=== PATIENT | female | born 1950 | race African-American/Black ===

== ENCOUNTER 2024-11-04 15:33 | Inpatient (IN) | payer MEDICARE, MEDICAID ==
[~2024-11-04] VITALS: Ht 172.7 cm; Wt 90.7 kg
[~2024-11-04 15:33] MED LIST: CARI250T; FESO4TAB; HYDR-1421; MONT4CHW74; [UNRECOGNIZED DRUG - CODE]; [UNRECOGNIZED DRUG - OTHER]
--- NOTE | 2024-11-04 15:52 | ED.PDOC ---
History of Present Illness HPI Comments This is a 74 years old female with past medical history of bronchial asthma, CHF, Alzheimer's disease, cardiac arrest, UTI, status post pacemaker presented to the ED via EMS with a chief complaint of dizziness , shivering and diaphoresis prior to this visit. Patient states that since last she started having abdominal pain and frequent diarrhea and went to [facility] and subsequently diagnosed with UTI and discharged home with oral antibiotic. Today morning the patient's suddenly felt diaphoresis and shakiness of the whole body with dizziness. Denies chest pain, shortness of breath, blurred vision, dysuria, hematuria or any blood in the stool. Time Seen by MD: 15:34 Primary Care Provider: JACKELIN Allergies: Coded Allergies: NO KNOWN ALLERGIES (Unverified , 12/18/10) Home Meds Reported Medications Hydrocodone-Acetaminophen (Vicodin) 1 Tab Tab 12/18/10 Carisoprodol (Soma) 250 Mg Tab 12/18/10 [Lansopizazole] No Conflict Check 12/18/10 Verapamil Hcl (Verapamil Hcl) 2.5 Mg/Ml Inj 12/18/10 Fesoterodine Fumarate (Toviaz) 4 Mg Tab 12/18/10 Montelukast Sodium (Singulair) 4 Mg Chw 12/18/10 Information Source: Patient Mode of Arrival: EMS Severity: Moderate Timing: Hours Duration: Since onset Prehospital treatment: None Past Medical History PAST MEDICAL HISTORY: Asthma, CHF, Gallstones, HTN Past Medical History (Other): Bipolar disorder, Alzheimer dementia, cardiac arrest Surgical History: BTL, Cholecystectomy, Pacemaker TELLER VAULT History: Denies all TELLER VAULT Hx Family History Family History: Reviewed,noncontributory to illness, No family hx of DM, No family hx of HTN Social History Smoker: Non-Smoker Alcohol: Denies ETOH Use Drugs: Denies Drug Use Lives In: Home Constitutional: denies: chills, diaphoresis, fatigue, fever, malaise, sweats, weakness, others EENTM: denies: blurred vision, double vision, ear bleeding, ear discharge, ear drainage, ear pain, ear ringing, eye pain, eye redness, hearing loss, mouth pain, mouth swelling, nasal discharge, nose bleeding, nose congestion, nose pain, photophobia, tearing, throat pain, throat swelling, voice changes, others Respiratory: denies: cough, hemoptysis, orthopnea, SOB at rest, shortness of breath, SOB with excertion, stridor, wheezing, others Cardiovascular: reports: lightheadedness; denies: chest pain, dizzy spells, diaphoresis, Dyspnea on exertion, edema, irregular heart beat, left arm pain, palpitations, PND, syncope, others Gastrointestinal: reports: abdominal pain, diarrhea; denies: abdomen distended, blood streaked bowels, constipated, dysphagia, difficulty swallowing, hematemesis, melena, nausea, poor appetite, poor fluid intake, rectal bleeding, rectal pain, vomiting, others Genitourinary: denies: abnormal vagina bleeding, burning, dyspareunia, dysuria, flank pain, frequency, hematuria, incontinence, pain, , vagina discharge, urgency, others Neurological: reports: dizziness; denies: fainting, headache, left sided numbness, left sided weakness, numbness, paresthesia, pre-existing deficit, right sided numbness, right sided weakness, seizure, speech problems, tingling, tremors, weakness, others Musculoskeletal: denies: back pain, gout, joint pain, joint swelling, muscle pain, muscle stiffness, neck pain, others Integumetry: denies: bruises, change in color, change in hair/nails, dryness, laceration, lesions, lumps, rash, wounds, others Hematologic/Lymphatic: denies: anemia, blood clots, easy bleeding, easy bruising, swollen glands, others Endocrine: denies: excessive hunger, excessive sweating, excessive thirst, excessive urination, flushing, intolerance to cold, intolerance to heat, unexplained weight gain, unexplained weight loss, others Psychiatric: reports: bipolar disorder; denies: anxiety, depression, hopeless, panic disorder, schizophrenia, sleepless, suicidal, others Physical Exam General Appearance: Mild Distress HEENT: Normal ENT Inspection, Pharynx Normal, TMs Normal Neck: Full Range of Motion, Non-Tender, Normal, Normal Inspection Respiratory: Chest Non-Tender, Lungs Clear, No Accessory Muscle Use, No Respiratory Distress, Normal Breath Sounds Cardiovascular: No Edema, No JVD, No Murmur, No Gallop, Normal Peripheral Pulses, Regular Rate/Rhythm Breast Exam: Deferred Gastrointestinal: Diffuse, No Organomegaly, No Pulsatile Mass, Normal Bowel Sounds, Tenderness Genitalia: Deferred Pelvic: Deferred Rectal: Deferred Extremities: Leg edema, Pedal edema Neurologic: NOT DONE Cerebellar Function: NOT DONE Reflexes: NOT DONE Skin: NOT DONE Peripheral Pulses: 3+ carotid (R), 3+ carotid (L), 3+ femoral (R), 3+ femoral (L), 3+ dorsalis pedis (R), 3+ dorsalis pedis (L), 3+ Radial (R), 3+ Radial (L), 3+ Brachial (R), 3+ Brachial (L) Lymphatic: NOT DONE Was a procedure done? Was a procedure done?: No Differential Dx Considerations may include: Syncope, TIA, hypovolemia, arrhythmia, CKD, colitis, viral gastroenteritis, UTI X-Ray, Labs, Meds, VS Vital Signs Date Time Temp Pulse Resp B/P (MAP) Pulse Ox O2 Delivery O2 Flow Rate FiO2 11/04/24 15:43 97.7 60 30 86/37 97 97.7 Lab Test 11/04/24 16:10 Range/Units White Blood Count 7.5 4.4-10.8 10^3/uL Red Blood Count 4.00 4.0-5.20 10^6/uL Hemoglobin 12.0 L 12.2-16.2 g/dL Hematocrit 36.1 36.0-46.0 % Mean Corpuscular Volume 90.3 80.0-100.0 fL Mean Corpuscular Hemoglobin 29.9 28.0-32.0 pg Mean Corpuscular Hemoglobin Concent 33.2 32.0-36.0 g/dL Red Cell Distribution Width 13.4 11.8-14.3 % Platelet Count 255 140-450 10^3/uL Mean Platelet Volume 7.4 6.9-10.8 fL Neutrophils (%) (Auto) 76.5 37.0-80.0 % Lymphocytes (%) (Auto) 17.3 10.0-50.0 % Monocytes (%) (Auto) 5.4 0.0-12.0 % Eosinophils (%) (Auto) 0.6 0.0-7.0 % Basophils (%) (Auto) 0.2 0.0-2.0 % Neutrophils # (Auto) 5.7 1.6-8.6 10 ^3/uL Lymphocytes # (Auto) 1.3 0.4-5.4 10 ^3/uL Monocytes # (Auto) 0.4 0-1.3 10 ^3/uL Eosinophils # (Auto) 0 0-0.8 10 ^3/uL Basophils # (Auto) 0 0-0.2 10 ^3/uL Nucleated Red Blood Cells 0.0 % Sodium Level Pending Potassium Level Pending Chloride Level Pending Carbon Dioxide Level Pending Anion Gap Pending Blood Urea Nitrogen Pending Creatinine Pending Glomerular Filtration Rate Calc Pending BUN/Creatinine Ratio Pending Serum Glucose Pending Calcium Level Pending Magnesium Level Pending B-Type Natriuretic Peptide Pending Lipase Pending X-Ray, Labs, Meds, VS Comment CHEST RADIOGRAPH Indication: chf Technique: Single frontal view of the chest was obtained Comparison: None FINDINGS: The cardiac silhouette is unremarkable. The lungs demonstrate perihilar airspace opacities. Bibasilar airspace opacities, [id number]. The pulmonary vasculature is prominent. There is no pleural effusion. There is no pneumothorax. Aortic atherosclerotic disease. Left chest dual lead cardiac pacing device. IMPRESSION: As above Images Reviewed?: Images reviewed and evaluated by me Time of 1ST Reevaluation: 17:04 Reevaluation 1ST: Unchanged Patient Education/Counseling: Diagnosis, Treatment Family Education/Counseling: No Family Present SEPSIS Sepsis Screen Physician Orders Basic Metabolic Panel (11/04/24 15:46) Urinalysis (11/04/24 15:46) B-Type Natriuretic Peptide (11/04/24 15:46) Lipase (11/04/24 15:46) Magnesium (11/04/24 15:46) Chest Portable (11/04/24 15:46) Electrocardigram (11/04/24 15:46) Orthostatic Vital Signs (11/04/24 15:46) Sodium Chloride 0.9% (11/04/24 16:00) Stool Wbc (11/04/24 15:50) Stool Occult Blood (11/04/24 15:50) Saline Lock (11/04/24 15:57) Head Without Contrast (11/04/24 16:37) Echo 2d Mode Cardiac Dop (11/04/24 16:37) Vital Signs Date Time Temp Pulse Resp B/P (MAP) Pulse Ox O2 Delivery O2 Flow Rate FiO2 11/04/24 15:43 97.7 60 30 86/37 97 97.7 Laboratory Tests Test 8/1/25 16:10 White Blood Count 7.5 10^3/uL (4.4-10.8) Departure 1 Departure Time of Disposition: 17:04 Impression: Primary Impression: Dizziness Additional Impression: Acute kidney injury superimposed on CKD Disposition: 30 STILL A PATIENT Admit to: Tele Condition: Guarded Critical Care Note Critical Care Time?: No Stability Stability form required: BEVERLY Mcmahon RESIDENT Nov 04, 2024 15:52
[2024-11-04 16:33] LABS: Hematocrit 36.1 % (36.0-46.0); Hemoglobin 12.0 g/dL (12.2-16.2); Mean Corpuscular Hemoglobin 29.9 pg (28.0-32.0); Mean Corpuscular Volume 90.3 fL (80.0-100.0); Nucleated Red Blood Cells % 0.0 %
[2024-11-04 16:44] LABS: Chloride 101 mmol/L (98-107); Potassium 4.6 mmol/L (3.5-5.1)
[2024-11-04 16:45] LABS: Anion Gap 11 (5-15); Calcium 9.6 mg/dL (8.7-10.4); Carbon Dioxide 23 mmol/L (20-31)
--- NOTE | 2024-11-04 16:48 | DVH ---
CHEST RADIOGRAPH Indication: chf Technique: Single frontal view of the chest was obtained Comparison: None FINDINGS: The cardiac silhouette is unremarkable. The lungs demonstrate perihilar airspace opacities. Bibasilar airspace opacities, [id number]-left. The pulmonary vasculature is prominent. There is no ple ural effusion. There is no pneumothorax. Aortic atherosclerotic disease. Left chest dual lead cardia c pacing device. IMPRESSION: As above
[2024-11-04 16:50] LABS: BUN/Creatinine Ratio 12.6 (10.0-20.0)
[2024-11-04 16:51] LABS: Lipase 31 U/L (12-53); Magnesium 1.9 mg/dL (1.6-2.6)
[2024-11-04 16:54] LABS: Blood Urea Nitrogen 30 mg/dL (9-23); Glucose 118 mg/dL (74-106); Sodium 135 mmol/L (136-145)
[2024-11-04] MEDS: SODIUM CHLORIDE 0.9% 500 ML IV ONE (17:06)
[2024-11-04] MEDS: ONDANSETRON HCL 4 MG/2 ML VIAL IV ONE (17:27)
[2024-11-04 17:29] VITALS: PULSE 94; RESP 20; O2SAT 98
--- NOTE | 2024-11-04 18:28 | ECG ---
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
--- NOTE | 2024-11-04 18:45 | DVH ---
COMPUTERIZED TOMOGRAPHY OF THE HEAD WITHOUT CONTRAST REASON FOR STUDY: Dizziness COMPARISON: None TECHNIQUE: Helical tomographic scans were obtained through the brain. 2-D coronal and sagittal refor matted images are provided. Radiation optimization: All CT scans at this facility use at least one of these dose optimization techniques: Automated exposure control mA and/or kV adjustment per patient s ize (includes targeted exams where dose is matched to clinical indication) or iterative reconstructio n. RADIATION DOSE: CTDI: 51 mGy DLP: 822 mGy-cm FINDINGS: No suspicious intracranial hyperdensity to suggest acute blood. There is no mass effect n or midline shift. There is no hydrocephalus. The suprasellar cistern is intact. The calvarium is inta ct. The visualized mastoid air cells and paranasal sinuses are clear. IMPRESSION: No acute intracranial abnormality.
[2024-11-04 19:25] LABS: Urine Protein, UAD 1+ (Negative)
[2024-11-04] MEDS: cefTRIAXone 1GM/50ML D5W 50 ML IV ONE (21:45)
[2024-11-04] MEDS ORDERED: ONDANSETRON HCL 4 MG/2 ML VIAL IV PRN (21:45)
[2024-11-04] MEDS ORDERED: ACETAMINOPHEN 325 MG TAB PO PRN (21:45)
[2024-11-04] MEDS ORDERED: NITROGLYCERIN 0.4 MG SL TAB SL PRN (21:45)
[2024-11-04] MEDS: SODIUM CHLOR 0.9% PF (SALINE LOCK) 10ML VIAL/SYR IV SCH (22:00)
[2024-11-04] MEDS: MELATONIN 5 MG TAB PO ONE (22:00)
--- NOTE | 2024-11-04 22:26 | DVHHPRES ---
History of Present Illness Resident Creating Document: AMANDEEP MORALES RESIDENT History of Present Illness 74-year-old female with a history of hypertension, congestive heart failure, bradycardia, severe asthma, and early-stage Alzheimer's disease presenting with worsening dizziness for over a week and low blood pressure. She reports experiencing dizziness for more than a week, which has progressively worsened despite medication. She initially sought treatment at [facility] for UTI, where she was prescribed painkillers and medication for dizziness. However, her symptoms have not improved. She has been adherent to her medication regimen and mentions having low blood pressure, which is unusual given her history of hypertension. She reports a history of severe asthma, having been intubated 11 times. She uses an inhaler and has a nebulizer at home but does not require oxygen therapy. She has a pacemaker, which was implanted in September [address] Reddy . Past Medical History HTN, CHF, bradycardia, asthma, Alzheimer disease, CKD Family History - Mother: due to complications from Alzheimer's, congestive heart failure, and heart attack Past Social History Denies smoking, drinks alcohol socially, denies drug use - Living Situation: Lives with daughter Review of Systems Review of Systems General: Positive for dizziness, insomnia. HEENT: Positive for dizziness. Cardiovascular: Positive for leg swelling. Respiratory: Denies SOB, chest pain Musculoskeletal: Positive for neck pain. Neurological: Positive for dizziness. Allergies: Coded Allergies: NO KNOWN ALLERGIES (Unverified , 12/18/10) Medications Current Medications Medications Dose Ordered Sig/Jaylin Route Start Time Stop Time Status Last Admin Dose Admin Sodium Chloride 10 ml Q8HR IV 11/04/24 22:00 Acetaminophen/ Hydrocodone Bitart 1 tab Q4HP PRN PO 11/04/24 21:45 Ondansetron HCl 4 mg Q4HP PRN IV 11/04/24 21:45 UNV Enoxaparin Sodium 30 mg DAILY SC 11/05/24 10:00 UNV Acetaminophen 650 mg Q6HP PRN PO 11/04/24 21:45 Nitroglycerin 0.4 mg Q5MINP PRN SL 11/04/24 21:45 Morphine Sulfate 2 mg Q30M PRN IV 11/04/24 21:45 Ceftriaxone Sodium 50 ml @ 100 mls/hr DAILY@0900 IV 11/05/24 09:00 Azithromycin 250 ml @ 125 mls/hr DAILY IV 11/05/24 10:00 Exam Vital Signs Vital Signs Date Time Temp Pulse Resp B/P (MAP) Pulse Ox O2 Delivery O2 Flow Rate FiO2 11/04/24 17:38 97.9 60 22 95/57 (70) 100 97.9 11/04/24 17:38 Room Air 11/04/24 17:29 0 21 Exam General Appearance: Cooperative. Pulmonary/Respiratory: Crackles in bilateral upper lobes Cardiovascular/Chest: Regular rate and rhythm. Peripheral Pulses: 2+ Radial (R). 2+ Radial (L). 2+ Pedal (R). 2+ Pedal (L) Abdominal Exam: Normal bowel sounds. Ankle Exam: 2+ pitting edema Lower extremities: 2+ pitting edema bilateral lower extremities Neuro/Mental Status: A/OX4, coherent. Skin Exam: Normal inspection. Normal color. Warm and dry. Labs/Xrays Labs Test 11/04/24 16:10 11/04/24 16:03 Range/Units White Blood Count 7.5 4.4-10.8 10^3/uL Red Blood Count 4.00 4.0-5.20 10^6/uL Hemoglobin 12.0 L 12.2-16.2 g/dL Hematocrit 36.1 36.0-46.0 % Mean Corpuscular Volume 90.3 80.0-100.0 fL Mean Corpuscular Hemoglobin 29.9 28.0-32.0 pg Mean Corpuscular Hemoglobin Concent 33.2 32.0-36.0 g/dL Red Cell Distribution Width 13.4 11.8-14.3 % Platelet Count 255 140-450 10^3/uL Mean Platelet Volume 7.4 6.9-10.8 fL Neutrophils (%) (Auto) 76.5 37.0-80.0 % Lymphocytes (%) (Auto) 17.3 10.0-50.0 % Monocytes (%) (Auto) 5.4 0.0-12.0 % Eosinophils (%) (Auto) 0.6 0.0-7.0 % Basophils (%) (Auto) 0.2 0.0-2.0 % Neutrophils # (Auto) 5.7 1.6-8.6 10 ^3/uL Lymphocytes # (Auto) 1.3 0.4-5.4 10 ^3/uL Monocytes # (Auto) 0.4 0-1.3 10 ^3/uL Eosinophils # (Auto) 0 0-0.8 10 ^3/uL Basophils # (Auto) 0 0-0.2 10 ^3/uL Nucleated Red Blood Cells 0.0 % Sodium Level 135 L 136-145 mmol/L Potassium Level 4.6 3.5-5.1 mmol/L Chloride Level 101 98-107 mmol/L Carbon Dioxide Level 23 20-31 mmol/L Anion Gap 11 5-15 Blood Urea Nitrogen 30 H 9-23 mg/dL Creatinine 2.39 H 0.550-1.02 mg/dL Glomerular Filtration Rate Calc 21 >90 mL/min BUN/Creatinine Ratio 12.6 10.0-20.0 Serum Glucose 118 H 74-106 mg/dL Calcium Level 9.6 8.7-10.4 mg/dL Magnesium Level 1.9 1.6-2.6 mg/dL B-Type Natriuretic Peptide 41.07 0-100 pg/mL Lipase 31 12-53 U/L Urine Color Yellow Yellow Urine Clarity Ex.turbid Clear Urine pH 5.5 5.0-9.0 Urine Specific [place] 1.027 1.001-1.035 Urine Protein 1+ H Negative Urine Ketones Negative Negative Urine Blood Negative Negative /uL Urine Nitrite Negative Negative Urine Bilirubin Negative Negative Urine Urobilinogen 3 H Negative mg/dL Urine Leukocyte Esterase Negative Negative /uL Urine RBC 13 0 - 4 /hpf Urine Microscopic WBC 5 0-5 /HPF Urine Squamous Epithelial Cells Few <5 /hpf Urine Bacteria None seen None Seen /hpf Urine Hyaline Casts Few 0 - 2 /lpf Urine Mucus Few None Seen Urine Glucose Normal Normal mg/dL SEPSIS Sepsis Screen Date sepsis recognized/suspect: Nov 04, 2024 Time Sepsis recognized/suspect: 1543 Recent Procedure: No On Antibiotic Therapy: No Respiratory Rate >20: No Heart Rate >90: No Temp<36 C (96.8 F) or >38.3 C: No SBP <90 or MAP <65 mmHG: Yes New Acute Mental Status Change: No Is the patient on CPAP, BIPAP,: No Physician Orders Chest Portable (11/04/24 15:46) Orthostatic Vital Signs (11/04/24 15:46) Stool Wbc (11/04/24 15:50) Stool Occult Blood (11/04/24 15:50) Saline Lock (11/04/24 15:57) Head Without Contrast (11/04/24 16:37) Echo 2d Mode Cardiac Dop (11/04/24 16:37) Admit (11/04/24 21:44) Code Status (11/04/24 21:44) Sodium Chloride Lock (Saline Lock Ns) (11/04/24 22:00) Oxygen Per Hour (11/04/24 21:44) Hydrocodone-Acet 5/325mg Tab (Tyrone 5/32 (11/04/24 21:45) Ondansetron Hcl (Zofran) (11/04/24 21:45) Complete Blood Count (11/05/24 04:00) Comprehensive Metabolic Panel (11/05/24 04:00) Cardiac Diet-2gna,Lofat,Lochol (11/05/24 Breakfast) Enoxaparin Sodium (Lovenox) (11/05/24 10:00) Acetaminophen Tablet (Tylenol Tablet) (11/04/24 21:45) Nitroglycerin Sublingual (Ntrostat Subli (11/04/24 21:45) Morphine Sulfate Injection (11/04/24 21:45) Oxygen By Nasal Cannula (11/04/24 21:44) Stat Ekg For Chest Pain (11/04/24 21:44) Notify Md Of Changes From Base (11/04/24 21:44) Nuclear Medicine Technologist For 24 Hours (11/04/24 21:44) Emergency Dysrhythmia Protocol (11/04/24 21:44) Rhythm Strips Once Every Shift (11/04/24 21:44) Ceftriaxone 1gm/50ml D5w (Rocephin) (11/05/24 09:00) Ceftriaxone 1gm/50ml D5w (Rocephin) (11/04/24 21:45) Azithromycin 500mg/ 250ml (Zithromax 50 (11/05/24 10:00) Melatonin (Melatonin) (11/04/24 22:00) Orthostatic Vital Signs (11/04/24 21:44) * Cardiology Consult (11/04/24 21:44) Vital Signs Date Time Temp Pulse Resp B/P (MAP) Pulse Ox O2 Delivery O2 Flow Rate FiO2 11/04/24 17:38 97.9 60 22 95/57 (70) 100 97.9 11/04/24 17:38 60 22 100 Room Air 11/04/24 17:29 94 20 98 Room Air* 0 21 11/04/24 15:43 97.7 60 30 86/37 97 97.7 Laboratory Tests Test 11/04/24 16:10 White Blood Count 7.5 10^3/uL (4.4-10.8) Medications Medications Dose Ordered Sig/Jaylin Route Start Time Stop Time Status Last Admin Dose Admin Ondansetron HCl 4 mg ONCE ONCE IV 11/04/24 16:00 11/04/24 16:01 DC 11/04/24 17:27 4 MG Sodium Chloride 500 ml @ 500 mls/hr Q1H ONCE IV 11/04/24 16:00 11/04/24 16:59 DC 11/04/24 17:06 500 MLS/HR Assessment/Plan Assessment/Plan # possible g positive/Gram-negative bacterial Pneumonia - evidence in chest x-ray - continue IV ceftriaxone 1 g daily and IV azithromycin 500 mg daily - Monitor respiratory status closely due to history of severe asthma # Hypotension - Hold antihypertensive medications - Administer intravenous fluids cautiously due to history of congestive heart failure - Monitor blood pressure closely # Dizziness due to likely for hypertension - Consult Dr. 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 - BUN was 30, creatinine was 2.39 - monitor kidney functions - avoid nephrotoxic medications # history of NH, # S/P pacemaker - cardiology consult - continue current medication # Congestive Systolic/Diastolic heart failure - Lasix 20 IV daily - patient is hypotensive, started GDMT when feasible - echocardiogram ordered - cardiology consultation for further management recommendations # Alzheimer's disease - patient has trach Donepezil - Monitor cognitive function during hospitalization # Asthma not exacerbation - Continue current asthma medications - breathing treatment as needed - monitor respiration, oxygen saturation # Insomnia - Avoid Ambien due to previous adverse reaction - Consider sleep hygiene education and non-pharmacological interventions - melatonin at night Goal of care discussed with patient for 37 minute: Full code Plan discussed with Dr. Albright Plan discussed with: Patient My Orders Orders - AMANDEEP MORALES RESIDENT Procedure Category Date Status Time Admit ADMIT 11/04/24 Transmitted 21:44 Code Status CODE 11/04/24 Transmitted 21:44 Sodium Chloride Lock PHA 11/04/24 In Process (Saline Lock Ns) 22:00 Oxygen Per Hour RT 11/04/24 Transmitted 21:44 Hydrocodone-Acet PHA 11/04/24 In Process 5/325mg Tab (Tyrone 21:45 Ondansetron Hcl PHA 11/04/24 Logged (Zofran) 21:45 Complete Blood Count LAB 11/05/24 Verified 04:00 Comprehensive LAB 11/05/24 Verified Metabolic Panel 04:00 Cardiac DIET 11/05/24 Transmitted Diet-2gna,Lofat,Lochol Breakfast Enoxaparin Sodium PHA 11/05/24 Logged (Lovenox) 10:00 Acetaminophen Tablet PHA 11/04/24 In Process (Tylenol Tablet) 21:45 Nitroglycerin PHA 11/04/24 In Process Sublingual (Ntrostat 21:45 Morphine Sulfate PHA 11/04/24 In Process Injection 21:45 Oxygen By Nasal RT 11/04/24 Transmitted Cannula 21:44 Stat Ekg For Chest CAMILA 11/04/24 In Process Pain 21:44 Notify Md Of Changes CAMILA 11/04/24 In Process From Base 21:44 Nuclear Medicine Technologist For CAMILA 11/04/24 In Process 24 Hours 21:44 Emergency Dysrhythmia CAMILA 11/04/24 In Process Protocol 21:44 Rhythm Strips Once CAMILA 11/04/24 In Process Every Shift 21:44 Ceftriaxone 1gm/50ml PHA 11/05/24 In Process D5w (Rocephin) 09:00 Ceftriaxone 1gm/50ml PHA 11/04/24 In Process D5w (Rocephin) 21:45 Azithromycin 500mg/ PHA 11/05/24 In Process 250ml (Zithromax 50 10:00 Melatonin (Melatonin) PHA 11/04/24 In Process 22:00 Orthostatic Vital ORDERS 11/04/24 Transmitted Signs 21:44 * Cardiology Consult CONS 11/04/24 Transmitted 21:44 Date of Service: Nov 04, 2024 Billing Provider: TALI ALBRIGHT MD Common Visit Codes: 85783-[id number] INP/OBS CARE (HIGH) Secondary Visit Codes: [id number]-[id number] CARE PLAN 30 MINUTES AMANDEEP MORALES RESIDENT Nov 04, 2024 22:26
--- NOTE | 2024-11-04 23:01 | DVHINCON2 ---
Date of service: Nov 04, 2024 Referring Physician Juli Reason for Consultation Pacemaker,CHF History of Present Illness This is a 74 year old female with a past medical history of hypertension, congestive heart failure, bradycardia, asthma, and early-stage Alzheimer's disease who presented to the ED with c/o worsening dizziness for over a week and low blood pressure. She reports experiencing dizziness for more than a week, which has progressively worsened despite medication. She initially sought treatment at [facility] for UTI, where she was prescribed painkillers and medication for dizziness. However, her symptoms have not improved. She has been adherent to her medication regimen and mentions having low blood pressure, which is unusual given her history of hypertension. BUN 30, MATERIAL STRESS TESTER 2.39. Chest x-ray shows perihilar airspace opacities, bibasilar airspace opacities, [id number]. CT head showed no acute intracranial abnormality. Patient was admitted to the hospital. I am asked to consult on this patient. Allergies: Coded Allergies: NO KNOWN ALLERGIES (Unverified , 12/18/10) Home Meds Reported Medications Hydrocodone-Acetaminophen (Vicodin) 1 Tab Tab 12/18/10 Carisoprodol (Soma) 250 Mg Tab 12/18/10 [Lansopizazole] No Conflict Check 12/18/10 Verapamil Hcl (Verapamil Hcl) 2.5 Mg/Ml Inj 12/18/10 Fesoterodine Fumarate (Toviaz) 4 Mg Tab 12/18/10 Montelukast Sodium (Singulair) 4 Mg Chw 12/18/10 Current Medications Current Medications Medications (Trade) Dose Ordered Sig/Jaylin Route PRN Reason Start Time Stop Time Status Last Admin Sodium Chloride (Saline Lock Ns) 10 ml Q8HR IV 11/04/24 22:00 Acetaminophen/ Hydrocodone Bitart (Peetz 5/325MG Tab) 1 tab Q4HP PRN PO MODERATE PAIN (4-6 PAIN SCALE) 11/04/24 21:45 Ondansetron HCl (Zofran) 4 mg Q4HP PRN IV NAUSEA / VOMITING 11/04/24 21:45 UNV Enoxaparin Sodium (Lovenox) 30 mg DAILY SC 11/05/24 10:00 Acetaminophen (Tylenol Tablet) 650 mg Q6HP PRN PO PAIN SCALE 1-3 OR TEMP>100.4 11/04/24 21:45 Nitroglycerin (Ntrostat Sublingual) 0.4 mg Q5MINP PRN SL FOR CHEST PAIN 11/04/24 21:45 Morphine Sulfate 2 mg Q30M PRN IV FOR CHEST PAIN 11/04/24 21:45 Ceftriaxone Sodium 50 ml @ 100 mls/hr DAILY@0900 IV 11/05/24 09:00 Azithromycin 250 ml @ 125 mls/hr DAILY IV 11/05/24 10:00 Review of Systems Constitutional: denies: chills, diaphoresis, fatigue, fever, malaise, sweats, weakness, others EENTM: denies: blurred vision, double vision, ear bleeding, ear discharge, ear drainage, ear pain, ear ringing, eye pain, eye redness, hearing loss, mouth pain, mouth swelling, nasal discharge, nose bleeding, nose congestion, nose pain, photophobia, tearing, throat pain, throat swelling, voice changes, others Respiratory: denies: cough, hemoptysis, orthopnea, SOB at rest, shortness of breath, SOB with excertion, stridor, wheezing, others Cardiovascular: reports: lightheadedness; denies: chest pain, dizzy spells, di aphoresis, Dyspnea on exertion, edema, irregular heart beat, left arm pain, palpitations, PND, syncope, others Gastrointestinal: reports: abdominal pain, diarrhea; denies: abdomen distended, blood streaked bowels, constipated, dysphagia, difficulty swallowing, hematemesis, melena, nausea, poor appetite, poor fluid intake, rectal bleeding, rectal pain, vomiting, others Genitourinary: denies: abnormal vagina bleeding, burning, dyspareunia, dysuria, flank pain, frequency, hematuria, incontinence, pain, , vagina discharge, urgency, others Neurological: reports: dizziness; denies: fainting, headache, left sided numbness, left sided weakness, numbness, paresthesia, pre-existing deficit, right sided numbness, right sided weakness, seizure, speech problems, tingling, tremors, weakness, others Musculoskeletal: denies: back pain, gout, joint pain, joint swelling, muscle pain, muscle stiffness, neck pain, others Integumetry: denies: bruises, change in color, change in hair/nails, dryness, laceration, lesions, lumps, rash, wounds, others Hematologic/Lymphatic: denies: anemia, blood clots, easy bleeding, easy bruising, swollen glands, others Endocrine: denies: excessive hunger, excessive sweating, excessive thirst, excessive urination, flushing, intolerance to cold, intolerance to heat, unexplained weight gain, unexplained weight loss, others Psychiatric: reports: bipolar disorder; denies: anxiety, depression, hopeless, panic disorder, schizophrenia, sleepless, suicidal, others Vital Signs Vital Signs Date Time Temp Pulse Resp B/P (MAP) Pulse Ox O2 Delivery O2 Flow Rate FiO2 11/04/24 17:38 97.9 60 22 95/57 (70) 100 97.9 11/04/24 17:38 Room Air 11/04/24 17:29 0 21 Physical Exam GENERAL: Alert and oriented x 3. No acute distress. Obese. EYES: PERRL, EOMI. Anicteric. HENT: Moist mucous membranes. LUNGS: Clear to auscultation bilaterally. CARDIOVASCULAR: Regular rate and rhythm. ABDOMEN: Soft, nontender and nondistended. EXTREMITIES: No edema. NEUROLOGIC: No focal neurological deficits. SKIN: Warm, dry. Labs/Diagnostic Data Labs Test 11/04/24 16:10 11/04/24 16:03 Range/Units White Blood Count 7.5 4.4-10.8 10^3/uL Red Blood Count 4.00 4.0-5.20 10^6/uL Hemoglobin 12.0 L 12.2-16.2 g/dL Hematocrit 36.1 36.0-46.0 % Mean Corpuscular Volume 90.3 80.0-100.0 fL Mean Corpuscular Hemoglobin 29.9 28.0-32.0 pg Mean Corpuscular Hemoglobin Concent 33.2 32.0-36.0 g/dL Red Cell Distribution Width 13.4 11.8-14.3 % Platelet Count 255 140-450 10^3/uL Mean Platelet Volume 7.4 6.9-10.8 fL Neutrophils (%) (Auto) 76.5 37.0-80.0 % Lymphocytes (%) (Auto) 17.3 10.0-50.0 % Monocytes (%) (Auto) 5.4 0.0-12.0 % Eosinophils (%) (Auto) 0.6 0.0-7.0 % Basophils (%) (Auto) 0.2 0.0-2.0 % Neutrophils # (Auto) 5.7 1.6-8.6 10 ^3/uL Lymphocytes # (Auto) 1.3 0.4-5.4 10 ^3/uL Monocytes # (Auto) 0.4 0-1.3 10 ^3/uL Eosinophils # (Auto) 0 0-0.8 10 ^3/uL Basophils # (Auto) 0 0-0.2 10 ^3/uL Nucleated Red Blood Cells 0.0 % Sodium Level 135 L 136-145 mmol/L Potassium Level 4.6 3.5-5.1 mmol/L Chloride Level 101 98-107 mmol/L Carbon Dioxide Level 23 20-31 mmol/L Anion Gap 11 5-15 Blood Urea Nitrogen 30 H 9-23 mg/dL Creatinine 2.39 H 0.550-1.02 mg/dL Glomerular Filtration Rate Calc 21 >90 mL/min BUN/Creatinine Ratio 12.6 10.0-20.0 Serum Glucose 118 H 74-106 mg/dL Calcium Level 9.6 8.7-10.4 mg/dL Magnesium Level 1.9 1.6-2.6 mg/dL B-Type Natriuretic Peptide 41.07 0-100 pg/mL Lipase 31 12-53 U/L Urine Color Yellow Yellow Urine Clarity Ex.turbid Clear Urine pH 5.5 5.0-9.0 Urine Specific [place] 1.027 1.001-1.035 Urine Protein 1+ H Negative Urine Ketones Negative Negative Urine Blood Negative Negative /uL Urine Nitrite Negative Negative Urine Bilirubin Negative Negative Urine Urobilinogen 3 H Negative mg/dL Urine Leukocyte Esterase Negative Negative /uL Urine RBC 13 0 - 4 /hpf Urine Microscopic WBC 5 0-5 /HPF Urine Squamous Epithelial Cells Few <5 /hpf Urine Bacteria None seen None Seen /hpf Urine Hyaline Casts Few 0 - 2 /lpf Urine Mucus Few None Seen Urine Glucose Normal Normal mg/dL Assessment Pneumonia. Hypotension. Dizziness. Urinary tract infection. 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 History of [place]. Status post pacemaker. Congestive Systolic/Diastolic heart failure. Alzheimer's disease. Asthma. Insomnia. Plan/Recommendation I agree with your ongoing assessment and care of plan. Telemetry reviewed. Echocardiogram. Morphine and Peetz for pain management. DVT prophylactics. Nitro SL. IV antibiotics as ordered. Additional plan as per the hospital course. A total of 45 minutes was spent reviewing the patient record, examining the patient, making a diagnostic and therapeutic plan, discussing this plan with medical personnel, following up on diagnostic studies and following the patient for clinical stability excluding any and all procedures. At least 50% of this time was spent in direct, [id number] contact. Plan discussed with: Patient AMILCAR ROMANO MD Nov 04, 2024 22:43
[2024-11-05 01:20] VITALS: PULSE 55; O2SAT 96
[2024-11-05] MEDS: HYDROcodone-ACET 5/325MG TAB PO PRN (03:30)
[2024-11-05] MEDS: MORPHINE SULFATE INJ 2 MG/ml SYRG IV PRN (04:18)
[2024-11-05] MEDS: SODIUM CHLORIDE 0.9% 2,000 ML IV ONE (05:30)
[2024-11-05 08:00] VITALS: PULSE 60; RESP 20; O2SAT 99
[2024-11-05 08:08] LABS: Hematocrit 31.1 % (36.0-46.0); Hemoglobin 10.2 g/dL (12.2-16.2); Mean Corpuscular Hemoglobin 30.1 pg (28.0-32.0); Mean Corpuscular Volume 91.7 fL (80.0-100.0); Nucleated Red Blood Cells % 0.1 %
[2024-11-05 08:23] LABS: Alanine Aminotransferase 14 U/L (7-40); Albumin 3.8 g/dL (3.2-4.8); Alkaline Phosphatase 60 U/L (46-116); Anion Gap 9 (5-15); BUN/Creatinine Ratio 15.4 (10.0-20.0); Carbon Dioxide 22 mmol/L (20-31); Chloride 106 mmol/L (98-107); Glucose 91 mg/dL (74-106); Potassium 4.7 mmol/L (3.5-5.1); Sodium 137 mmol/L (136-145); Total Protein 5.8 g/dL (5.7-8.2)
[2024-11-05 08:24] LABS: Bilirubin, Total 0.3 mg/dL (0.2-1.0); Blood Urea Nitrogen 35 mg/dL (9-23); Calcium 8.2 mg/dL (8.7-10.4)
--- NOTE | 2024-11-05 09:00 | DVHPNRES ---
Progress Note Date Seen: Nov 05, 2024 Resident Creating Document: BRIGIDA UMAÑA RESIDENT Medical Necessity Reason Pt with a Central, PICC or Fol: No Subjective Review of Systems Marina Orona is a 74-year-old female with past medical history of congestive heart failure, bradycardia, hypertension, severe asthma, Alzheimer's disease lumbar spondylolisthesis, irritable bowel disease, pacemakers, presented to the ER with chief complain of dizziness, which started in August this year. She complained of worsening dizziness yesterday associated with vertigo, nausea, vomiting, which urged her visit to the ER. Reported headache, radiating to the neck since yesterday. Since last 2 years, she has been taking meclizine to help with dizziness, complained of worsening of symptoms recently. She reports history of UTI, initially sought treatment at [facility] for UTI, where she was prescribed painkillers and medication for dizziness. However, her symptoms have not improved. She also complained of painful muscle spasms in bilateral lower limbs. No home oxygen. Previous hospitalization: Reported multiple intubations (11 times in the past) for asthma exacerbation PMHx: congestive heart failure, bradycardia, hypertension, severe asthma, Alzheimer's disease lumbar spondylolisthesis, pacemakers Social history: Never smoker, no recreational drug use, uses alcohol occasionally. Lives in home with daughter. Uses a walker for ambulation Home medication: Oxybutynin, loperamide, cephalexin, meclizine, Entresto, albuterol, donepezil,Symbicort, phenazopyridine, hydroxyzine, acetaminophen, omeprazole, carvedilol, methocarbamol, montelukast, dicyclomine, spironolactone, simvastatin She was examined at bedside today. Vitals show low blood pressure, tachypnea. currently on 2 L/min oxygen. ROS: Constitutional: Weight loss. Denies fever and chills. HEENT: Denies changes in vision and hearing. Respiratory: Denies shortness of breath and cough Cardiovascular: Denies chest discomfort or palpitations GI: Chronic Abdominal pain, nausea, vomiting and diarrhea due to irritable bowel disease : Dysuria and urinary frequency. Musculoskeletal: Denies myalgias and joint pain Skin: Denies rash and pruritus. Neurological: Dizziness, headache, vision or hearing problems Objective vital signs Vital Sign Date Time Temp Pulse Resp B/P (MAP) Pulse Ox O2 Delivery O2 Flow Rate FiO2 11/05/24 08:00 97.9 60 20 102/58 (73) 99 97.9 11/05/24 08:00 Nasal Cannula* 2 28 Total Intake and Output 11/04/24 11/04/24 11/05/24 15:00 23:00 07:00 Intake Total 500 ml Balance 500 ml medications Current Medications Medications Dose Ordered Sig/Jaylin Route Start Time Stop Time Status Last Admin Dose Admin Sodium Chloride 10 ml Q8HR IV 11/04/24 22:00 11/05/24 05:33 10 ML Acetaminophen/ Hydrocodone Bitart 1 tab Q4HP PRN PO 11/04/24 21:45 11/05/24 03:30 1 TAB Ondansetron HCl 4 mg Q4HP PRN IV 11/04/24 21:45 Hold Enoxaparin Sodium 30 mg DAILY SC 11/05/24 10:00 Acetaminophen 650 mg Q6HP PRN PO 11/04/24 21:45 Nitroglycerin 0.4 mg Q5MINP PRN SL 11/04/24 21:45 Morphine Sulfate 2 mg Q30M PRN IV 11/04/24 21:45 11/05/24 04:18 2 MG Ceftriaxone Sodium 50 ml @ 100 mls/hr DAILY@0900 IV 11/05/24 09:00 Azithromycin 250 ml @ 125 mls/hr DAILY IV 11/05/24 10:00 Examination General: Patient alert and oriented in person, place and time. Patient following commands. HEENT: Normocephalic, atraumatic, moist mucous membranes Respiratory/pulmonary: Inspiratory and expiratory wheezing in right lung, mild wheezing on left upper lung Cardiovascular: Normal heart sounds S1 and S2 with no associated murmurs Abdomen: Abdomen nondistended, there is no pain to palpation in any of the abdominal quadrants, no palpable masses. FRANSISCA WNL, performed after consent, with lead carpenter RN Extremities: There is no peripheral edema present at the lower extremities. Skin: No rashes or pruritus, there is no sacral edema present at this time. Neurological: Intact cranial nerves with no focal neurologic deficits laboratory and microbiology Laboratory Tests 11/05/24 07:20 Test 11/05/24 07:20 Range/Units Serum Glucose 91 74-106 mg/dL Labs and/or images reviewed: Labs reviewed by me, Image(s) reviewed by me Problem List/Assessment/Plan Problem List/Assessment/Plan Acute hypoxic respiratory failure, due to pneumonia, Gram-negative/Gram-positive possible CXR showed: lungs demonstrate perihilar airspace opacities. Bibasilar airspace opacities, [id number]. The pulmonary vasculature is prominent. There is no pleural effusion. There is no pneumothorax. Aortic atherosclerotic disease. Left chest dual lead cardiac pacing device. Continue IV azithromycin, ceftriaxone Continue pain management and Zofran Oxygen 2 L Hypotension, history of hypertension Status post pacemaker History of Congestive systolic/ diastolic heart failure Cardiology on board. Echo revealed: Mild LV diastolic dysfunction, LVEF 65%. Aortic sclerosis, dilated LV, RV, RA. BNP WNL Stool occult blood ordered Monitored On telemetry Dizziness, likely due to hypotension Orthostatic hypotension, ruled out clinically BPPV, ruled out clinically Arrhythmias, rule out CT head without contrast revealed No acute intracranial abnormality. Cardiology on board. Echo ordered Monitor on telemetry ASHELY on CKD due to the VMN Increased BUN, creatinine History of Alzheimer's disease History of asthma History of Insomnia History of UTI Continue IV ceftriaxone Normocytic, normochromic anemia Hemoglobin 10.2 Hypocalcemia Corrected calcium 8.4 DIET: cardiac DVT PROPHYLAXIS: Lovenox 30 mg GI PROPHYLAXIS: PCP: Dr. Asif Méndez CODE STATUS: Goals of care discussed with patient at bedside for 20 minutes. Full code DISPOSITION: ER overflow Patient's status and plan discussed with the patient. Case discussed with Dr. Seth. Plan discussed with: Patient, Other (RN) Addendum Addendum Addendum I was physically present for the [place] portions of the service provided to patient by THE RESIDENT. I have reviewed the documentation, discussed the case with resident and agree with the resident's documentation except as noted. Also the patient's clinical case was discussed with the patient's nurse. This medical document was created using an electronic medical record system with computerized dictation system. Although this document has been carefully reviewed, there might still be some phonetic and typographical errors. These areas are purely typographical due to imperfections of the software programs, and do not reflect any compromise in the patient's medical care. Late signature. Date of Service: Nov 05, 2024 Billing Provider: DOM SETH MD Common Visit Codes: [id number] INP/OBS CARE(HIGH) Secondary Visit Codes: 55751-NMLNZAOA CARE PLAN 30 MINUTES (20 minutes) BRIGIDA UMAÑA RESIDENT Nov 05, 2024 09:00 DOM SETH MD Nov 07, 2024 05:22
[2024-11-05] MEDS: cefTRIAXone 1GM/50ML D5W 50 ML IV SCH (11:22)
[2024-11-05] MEDS: ENOXAPARIN SOD 30 MG/0.3 ML SYRINGE SC SCH (11:23)
[2024-11-05] MEDS: AZITHROMYCIN 500MG/ 250ML 250 ML IV SCH (12:24)
--- NOTE | 2024-11-05 15:18 | DVHSR ---
APPROVED REPORT EXAM: Two-dimensional and M-mode echocardiogram with Doppler and color Doppler. Blood Pressure: 102/58 mmHg INDICATION CHF RISK FACTORS Height: 5', Weight: 200 DIMENSIONS LVDd4.9 (3.8-5.7cm)LA (2D)4.4 (1.9-4.0cm)Aortic Root3.3 (2.0-3.7cm) LVDs3.7 (2.5-4.0cm)LA (MM) (1.9-4.0cm)Aortic Cusp Exc2.0 (1.5-2.0cm) EF (%) 50.0 (55-70%)Rt. Atrium4.9 (1.9-4.0cm)Asc. Aorta cm IVSd1.2 (0.7-1.1cm)RV (D) (1.8-2.4cm) PWd1.1 (0.7-1.1cm) Mitral Valve MitralMitral Stenosis E wave0.70m/sMV Mean GR.mmHg A wave0.90m/sMV Peak GR.mmHg E/A ratio0.82D MVAcm2 Aortic Valve Aortic ValveAortic Stenosis V11.40m/Chucky Mean GR.9mmHg V22.00m/Chucky Peak GR.17mmHg LVOT Diameter2.3 (1.8-2.4cm)Doppler AVA2.91cm2 Pulmonic Valve V20.90m/s Tricuspid Valve TR Velocity2.30m/s [id number] Conclusion MILD LVH AND MILD LV DIASTOLIC DYSFUNCTION LV EF IS 65% AND IS NORMAL AORTIC SCLEROSIS MODERATELY DILAED LA ,RV AND RA GROSSLY NORMAL VALVES NO EFFUSION
[2024-11-05 17:00] VITALS: BP 133/62; PULSE 60; RESP 18; TEMP 97.1; O2SAT 98
[2024-11-05 17:38] VITALS: PULSE 60; RESP 18; O2SAT 98
[2024-11-05] MEDS ORDERED: OXYB10GE PO (18:22)
[2024-11-05] MEDS ORDERED: SIMV20TA20 PO (18:22)
[2024-11-05] MEDS ORDERED: FLUT0.05 NAS (18:22)
[2024-11-05] MEDS ORDERED: OMEP20TA PO (18:22)
[2024-11-05] MEDS ORDERED: DICY20TA PO (18:22)
[2024-11-05] MEDS ORDERED: CARV3.1240 PO (18:22)
[2024-11-05] MEDS ORDERED: MONT10TA23 PO (18:22)
[2024-11-05] MEDS ORDERED: ALBU2TAB11 PO (18:22)
[2024-11-05] MEDS ORDERED: SACU1TAB PO (18:22)
[2024-11-05] MEDS ORDERED: LOPE2CAP PO (18:22)
[2024-11-05] MEDS ORDERED: DONE1TAB88 PO (18:22)
[2024-11-05 20:00] VITALS: PULSE 60; PULSE 92; RESP 18; O2SAT 96
[2024-11-05 21:00] VITALS: BP 104/53; PULSE 59; RESP 16; TEMP 97.3; O2SAT 96
[2024-11-05] MEDS: MELATONIN 5 MG TAB PO ONE (23:22)
--- NOTE | 2024-11-05 23:56 | DVHPN2 ---
Progress Note - Dictate Date Seen: Nov 05, 2024 Medical Necessity Reason Pt with a Central, PICC or Fol: No Subjective Patient was seen and evaluated in follow up. Patient is on 2 LPM NC. Patient is c/o SOB/ Echocardiogram is ordered/pending. BUN 35, MILLER HEAD ASSISTANT WET PROCESS 2.27. Telemetry reviewed. vital signs Vital Sign Date Time Temp Pulse Resp B/P (MAP) Pulse Ox O2 Delivery O2 Flow Rate FiO2 11/05/24 10:00 60 20 107/45 (65) 98 11/05/24 08:00 97.9 97.9 11/05/24 08:00 Nasal Cannula* 2 28 Total Intake and Output 11/04/24 11/04/24 11/05/24 15:00 23:00 07:00 Intake Total 500 ml Balance 500 ml medications Current Medications Medications Dose Ordered Sig/Jaylin Route Start Time Stop Time Status Last Admin Dose Admin Sodium Chloride 10 ml Q8HR IV 11/04/24 22:00 11/05/24 05:33 10 ML Acetaminophen/ Hydrocodone Bitart 1 tab Q4HP PRN PO 11/04/24 21:45 11/05/24 03:30 1 TAB Ondansetron HCl 4 mg Q4HP PRN IV 11/04/24 21:45 Hold Enoxaparin Sodium 30 mg DAILY SC 11/05/24 10:00 11/05/24 11:23 30 MG Acetaminophen 650 mg Q6HP PRN PO 11/04/24 21:45 Nitroglycerin 0.4 mg Q5MINP PRN SL 11/04/24 21:45 Morphine Sulfate 2 mg Q30M PRN IV 11/04/24 21:45 11/05/24 04:18 2 MG Ceftriaxone Sodium 50 ml @ 100 mls/hr DAILY@0900 IV 11/05/24 09:00 11/05/24 11:22 100 MLS/HR Azithromycin 250 ml @ 125 mls/hr DAILY IV 11/05/24 10:00 objective GENERAL: Alert and oriented x 3. No acute distress. Obese. EYES: PERRL, EOMI. Anicteric. HENT: Moist mucous membranes. LUNGS: Clear to auscultation bilaterally. CARDIOVASCULAR: Regular rate and rhythm. ABDOMEN: Soft, nontender and nondistended. EXTREMITIES: No edema. NEUROLOGIC: No focal neurological deficits. SKIN: Warm, dry. laboratory and microbiology Laboratory Tests 11/05/24 07:20 Test 11/05/24 07:20 Range/Units Serum Glucose 91 74-106 mg/dL Problem List Pneumonia. Hypotension. Dizziness. Urinary tract infection. 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 History of [place]. Status post pacemaker. Congestive Systolic/Diastolic heart failure. Alzheimer's disease. Asthma. Insomnia. Assessment/Plan Continued all current supportive medical care. Echocardiogram. Morphine and Ass[place]oman for pain management. DVT prophylactics. Nitro SL. IV antibiotics as ordered. Additional plan as per the hospital course. Plan discussed with: Patient AMILCAR ROMANO MD Nov 05, 2024 11:55
[2024-11-06] VITALS (8 sets, daily range): BP systolic 94–135; BP diastolic 48–63; PULSE 59–64; RESP 17–21; TEMP 97–98; O2SAT 92–100
[2024-11-06 08:12] LABS: Hematocrit 29.0 % (36.0-46.0); Hemoglobin 9.5 g/dL (12.2-16.2); Mean Corpuscular Hemoglobin 30.0 pg (28.0-32.0); Mean Corpuscular Volume 92.1 fL (80.0-100.0); Nucleated Red Blood Cells % 0.1 %
[2024-11-06 08:24] LABS: Potassium 5.1 mmol/L (3.5-5.1); Sodium 138 mmol/L (136-145)
[2024-11-06 08:25] LABS: Anion Gap 7 (5-15); Calcium 8.8 mg/dL (8.7-10.4); Carbon Dioxide 23 mmol/L (20-31)
[2024-11-06 08:30] LABS: BUN/Creatinine Ratio 26.0 (10.0-20.0); Glucose 81 mg/dL (74-106)
[2024-11-06 08:37] LABS: Blood Urea Nitrogen 27 mg/dL (9-23); Chloride 108 mmol/L (98-107)
[2024-11-06] MEDS ORDERED: CEPH500T PO (13:29)
[2024-11-06] MEDS: SODIUM CHLORIDE 0.9% 500 ML IV ONE (13:59)
--- NOTE | 2024-11-06 15:25 | DVHDSRES ---
Discharge Summary Date of Admission Resident Creating Document: BRIGIDA UMAÑA RESIDENT Nov 04, 2024 at 21:44 Date of Discharge: Nov 06, 2024 Admitting Diagnosis Dizziness Labs/Diagnostic Data: Laboratory Results Test 11/06/24 07:57 11/05/24 07:20 11/04/24 16:10 11/04/24 16:03 White Blood Count 6.0 10^3/uL (4.4-10.8) Red Blood Count 3.15 10^6/uL (4.0-5.20) Hemoglobin 9.5 g/dL (12.2-16.2) Hematocrit 29.0 % (36.0-46.0) Mean Corpuscular Volume 92.1 fL (80.0-100.0) Mean Corpuscular Hemoglobin 30.0 pg (28.0-32.0) Mean Corpuscular Hemoglobin Concent 32.6 g/dL (32.0-36.0) Red Cell Distribution Width 13.6 % (11.8-14.3) Platelet Count 170 10^3/uL (140-450) Mean Platelet Volume 7.3 fL (6.9-10.8) Neutrophils (%) (Auto) 58.4 % (37.0-80.0) Lymphocytes (%) (Auto) 29.4 % (10.0-50.0) Monocytes (%) (Auto) 5.9 % (0.0-12.0) Eosinophils (%) (Auto) 6.0 % (0.0-7.0) Basophils (%) (Auto) 0.3 % (0.0-2.0) Neutrophils # (Auto) 3.5 10 ^3/uL (1.6-8.6) Lymphocytes # (Auto) 1.8 10 ^3/uL (0.4-5.4) Monocytes # (Auto) 0.4 10 ^3/uL (0-1.3) Eosinophils # (Auto) 0.4 10 ^3/uL (0-0.8) Basophils # (Auto) 0 10 ^3/uL (0-0.2) Nucleated Red Blood Cells 0.1 % Sodium Level 138 mmol/L (136-145) Potassium Level 5.1 mmol/L (3.5-5.1) Chloride Level 108 mmol/L (98-107) Carbon Dioxide Level 23 mmol/L (20-31) Anion Gap 7 (5-15) Blood Urea Nitrogen 27 mg/dL (9-23) Creatinine 1.04 mg/dL (0.550-1.02) Glomerular Filtration Rate Calc 56 mL/min (>90) BUN/Creatinine Ratio 26.0 (10.0-20.0) Serum Glucose 81 mg/dL (74-106) Calcium Level 8.8 mg/dL (8.7-10.4) Total Bilirubin 0.3 mg/dL (0.2-1.0) Aspartate Amino Transferase (AST) 13 U/L (13-40) Alanine Aminotransferase (ALT) 14 U/L (7-40) Alkaline Phosphatase 60 U/L (46-116) Total Protein 5.8 g/dL (5.7-8.2) Albumin 3.8 g/dL (3.2-4.8) Magnesium Level 1.9 mg/dL (1.6-2.6) B-Type Natriuretic Peptide 41.07 pg/mL (0-100) Lipase 31 U/L (12-53) Urine Color Yellow (Yellow) Urine Clarity Ex.turbid (Clear) Urine pH 5.5 (5.0-9.0) Urine Specific [place] 1.027 (1.001-1.035) Urine Protein 1+ (Negative) Urine Ketones Negative (Negative) Urine Blood Negative /uL (Negative) Urine Nitrite Negative (Negative) Urine Bilirubin Negative (Negative) Urine Urobilinogen 3 mg/dL (Negative) Urine Leukocyte Esterase Negative /uL (Negative) Urine RBC 13 /hpf (0 - 4) Urine Microscopic WBC 5 /HPF (0-5) Urine Squamous Epithelial Cells Few /hpf (<5) Urine Bacteria None seen /hpf (None Seen) Urine Hyaline Casts Few /lpf (0 - 2) Urine Mucus Few (None Seen) Urine Glucose Normal mg/dL (Normal) Other Laboratory Tests 11/06/24 07:57 Brief Hx & Hospital Course: HISTORY OF PRESENT ILLNESS: Marina Orona is a 74-year-old female with past medical history of congestive heart failure, bradycardia, hypertension, severe asthma, Alzheimer's disease lumbar spondylolisthesis, irritable bowel disease, pacemakers, presented to the ER with chief complain of dizziness, which started in August this year. She complained of worsening dizziness yesterday associated with vertigo, nausea, vomiting, which urged her visit to the ER. Reported headache, radiating to the neck since yesterday. Since last 2 years, she has been taking meclizine to help with dizziness, complained of worsening of symptoms recently. She reports history of UTI, initially sought treatment at [facility] for UTI, where she was prescribed painkillers and medication for dizziness. However, her symptoms have not improved. She also complained of painful muscle spasms in bilateral lower limbs. No home oxygen. Previous hospitalization: Reported multiple intubations (11 times in the past) for asthma exacerbation PMHx: congestive heart failure, bradycardia, hypertension, severe asthma, Alzheimer's disease lumbar spondylolisthesis, pacemakers Social history: Never smoker, no recreational drug use, uses alcohol occasionally. Lives in home with daughter. Uses a walker for ambulation Home medication: Oxybutynin, loperamide, cephalexin, meclizine, Entresto, albuterol, donepezil,Symbicort, phenazopyridine, hydroxyzine, acetaminophen, omeprazole, carvedilol, methocarbamol, montelukast, dicyclomine, spironolactone, simvastatin HOSPITAL COURSE: Patient was admitted at the line of pneumonia and UTI, and the patient goes given empiric antibiotic of Rocephin and azithromycin, IV fluid and pain management. Due to previous history of heart disease and status post pacemaker, cardiology consulted recommended medical management. Echocardiogram performed, showed LVEF 65% with mild LVH and mild diastolic dysfunction. Patient also had ASHELY, which had improved with giving IV fluid. During hospital admission, home oxygen through nasal cannula were continued. On 11/06/2024, the patient was feeling better since admission. Physiotherapy evaluation was performed, the patient was able to walk independently. Discharge plan discussed with the patient the patient discharged home. Physical examination on day of discharge General Appearance: Alert, Oriented X3, Cooperative, No acute distress HEENT: Atraumatic, PERRLA, EOMI, Mucous membrane moist/pink Respiratory: Clear to auscultation, Normal air movement Cardiovascular: Regular rate, Normal S1, Normal S2, No murmurs, no chest wall tenderness. Pacemaker in place Abdominal: Normal bowel sounds, Soft, No tenderness, No hepatosplenomegaly, No masses Extremities: No clubbing, No cyanosis, No edema, Normal pulses, No tenderness/swelling Skin: No rashes, No breakdown, No significant lesion Neuro: Normal gait, Normal speech, Strength at 5/5 X4 ext, Normal tone, Sensation intact, Cranial nerves 3-12 NL, Reflexes 2+ Psych/Mental Status: Mental status NL, Mood NL DISCHARGE PLAN: Follow up with the PCP within 1 week of the discharge. Keflex 500 mg b.i.d. for 5 days Continue with FINAL DIAGNOSIS: Pneumonia, likely due to Gram-positive/Gram-negative bacteria/viral Complicated UTI History of HI and congestive heart failure, stable Status post pacemaker Hypertension Dizziness, likely due to hypotension Ruled out respiratory failure Ruled the BPPV ASHELY on CKD likely VMN History of asthma History of dementia History of insomnia Discussed with Dr. Seth Consults/Reason for consult Cardiology for dizziness in the setting of presence of pacemaker Condition at Discharge: Stable Final Diagnosis/Problems List Gastroeneteritis/UTI Discharge Disposition: Home Discharge Instruct/Medications Diet: Cardiac 2g Na,low cholest Activity: No Restrictions, As Tolerated Follow Up/Referral: Follow up with the PCP within 1 week of the discharge. Follow up with the discharge Clinic within 1 week of the discharge. To follow up with her primary completion supervisor within 2 to 4 weeks Medications: Keflex 500 mg twice daily for 5 days Continue home meds Scheduled Carvedilol (Carvedilol), 3.125 MG PO BID, (Reported) Cephalexin Monohydrate (Cephalexin), 500 MG PO BID Donepezil Hydrochloride (Donepezil Hcl), 10 MG PO DAILY, (Reported) Fluticasone Propionate (Fluticasone Propionate), 100 MCG MIGUEL BID, (Reported) Loperamide Hcl (Loperamide Hcl), 2 MG PO TID, (Reported) Montelukast Sodium (Singulair), 10 MG PO DAILY, (Reported) Omeprazole (Gnp Omeprazole), 40 MG PO DAILY, (Reported) Oxybutynin Chloride (Gelnique), 5 MG PO DAILY, (Reported) Sacubitril-Valsartan (Entresto 24-26 mg), 1 TAB PO BID, (Reported) Simvastatin (Simvastatin), 20 MG PO QPM, (Reported) Scheduled PRN Albuterol Sulfate (Albuterol Sulfate), 2 MG PO Q6HP PRN for SHORTNESS OF BREATH, (Reported) Miscellaneous Medications Carisoprodol (Soma), (Reported) Fesoterodine Fumarate (Toviaz), (Reported) Hydrocodone-Acetaminophen (Vicodin), (Reported) Montelukast Sodium (Singulair), (Reported) Verapamil Hcl (Verapamil Hcl), (Reported) [Lansopizazole], (Reported) Discontinued Medications Dicyclomine Hcl (Dicyclomine Hcl), 20 MG PO BID, (Reported) Discharge Statement: "Patient was advised to return to the ER or call 911 if any headaches, dizziness, shortness of breath, chest pain, abdominal pain, bleeding, fevers, or worsening of medical condition. Patient was counseled about treatment plan, medications, possible side effects, patientverbalized understanding. All questions were answered to the best of my ability. This discharge took greater then 30 minutes in planning, reviewing documentation, counseling the patient, and discussing with other team members." ASSESSMENT ASSESSMENT Assessment Gastroeneteritis/UTI Addendum Addendum Addendum I was physically present for the [place] portions of the service provided to patient by THE RESIDENT. I have reviewed the documentation, discussed the case with resident and agree with the resident's documentation except as noted. Also the patient's clinical case was discussed with the patient's nurse. This medical document was created using an electronic medical record system with computerized dictation system. Although this document has been carefully reviewed, there might still be some phonetic and typographical errors. These areas are purely typographical due to imperfections of the software programs, and do not reflect any compromise in the patient's medical care. Late signature. Date of Service: Nov 06, 2024 Billing Provider: DOM SETH MD Common Visit Codes: 97821-XYQ/OBS DISCH DAY >30min CARLITO SHARIF RESDIENT Nov 06, 2024 15:25 DOM SETH MD Nov 07, 2024 05:25
--- NOTE | 2024-11-06 23:47 | DVHPN2 ---
Progress Note - Dictate Date Seen: Nov 06, 2024 Medical Necessity Reason Pt with a Central, PICC or Fol: No Subjective Patient was seen and evaluated in follow up. Patient complains of generalized discomfort. Echocardiogram showed an EF of 65%. HGB 9.5, HCT 29, CL 108, BUN 27, CHOIR ACCOMPANIST 1.04. Telemetry reviewed. vital signs Vital Sign Date Time Temp Pulse Resp B/P (MAP) Pulse Ox O2 Delivery O2 Flow Rate FiO2 11/06/24 08:44 97.4 60 19 135/55 (81) 92 97.4 11/06/24 08:30 Room Air* 0 21 Total Intake and Output 11/05/24 11/05/24 11/06/24 15:00 23:00 07:00 Intake Total 300 ml 700 ml Balance 300 ml 700 ml medications Current Medications Medications Dose Ordered Sig/Jaylin Route Start Time Stop Time Status Last Admin Dose Admin Sodium Chloride 10 ml Q8HR IV 11/04/24 22:00 11/06/24 06:00 10 ML Acetaminophen/ Hydrocodone Bitart 1 tab Q4HP PRN PO 11/04/24 21:45 11/06/24 10:03 1 TAB Ondansetron HCl 4 mg Q4HP PRN IV 11/04/24 21:45 Hold Enoxaparin Sodium 30 mg DAILY SC 11/05/24 10:00 11/06/24 09:08 30 MG Acetaminophen 650 mg Q6HP PRN PO 11/04/24 21:45 Nitroglycerin 0.4 mg Q5MINP PRN SL 11/04/24 21:45 Ceftriaxone Sodium 50 ml @ 100 mls/hr DAILY@0900 IV 11/05/24 09:00 11/06/24 09:09 100 MLS/HR Azithromycin 250 ml @ 125 mls/hr DAILY IV 11/05/24 10:00 11/06/24 10:04 125 MLS/HR objective GENERAL: Alert and oriented x 3. No acute distress. Obese. EYES: PERRL, EOMI. Anicteric. HENT: Moist mucous membranes. LUNGS: Clear to auscultation bilaterally. CARDIOVASCULAR: Regular rate and rhythm. ABDOMEN: Soft, nontender and nondistended. EXTREMITIES: No edema. NEUROLOGIC: No focal neurological deficits. SKIN: Warm, dry. laboratory and microbiology Laboratory Tests 11/06/24 07:57 Test 11/06/24 07:57 Range/Units Serum Glucose 81 74-106 mg/dL Problem List Pneumonia. Hypotension. Dizziness. Urinary tract infection. 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 History of OR. Status post pacemaker. Congestive Systolic/Diastolic heart failure. Alzheimer's disease. Asthma. Insomnia. Assessment/Plan Continued all current supportive medical care. Tylenol and [place] for pain management. DVT prophylactics. Nitro SL. IV antibiotics as ordered. Additional plan as per the hospital course. Plan discussed with: Patient AMILCAR ROMANO MD Nov 06, 2024 13:00
== END 2024-11-06 18:32 | disposition home or self-care (01) | DRG 177 ==
LOC: EDBD 15:33 → ER 15:33 → OVERFLOW 21:44 → TELE-CENTR 11-05 17:24
PROVIDERS: ADMIT Internal Medicine; ATTEND Specialist
DX: J15.69 Pneumonia due to other Gram-negative bacteria (principal); N17.0 Acute kidney failure with tubular necrosis; F02.818 Dementia in other diseases classified elsewhere, unspecified severity, with other behavioral disturbance; F02.83 Dementia in other diseases classified elsewhere, unspecified severity, with mood disturbance; I13.0 Hypertensive heart and chronic kidney disease with heart failure and stage 1 through stage 4 chronic kidney disease, or unspecified chronic kidney disease; N39.0 Urinary tract infection, site not specified; I50.40 Unspecified combined systolic (congestive) and diastolic (congestive) heart failure; J15.9 Unspecified bacterial pneumonia; J12.9 Viral pneumonia, unspecified; K52.9 Noninfective gastroenteritis and colitis, unspecified; G30.9 Alzheimer's disease, unspecified; G47.00 Insomnia, unspecified; J45.909 Unspecified asthma, uncomplicated; N18.9 Chronic kidney disease, unspecified; E83.51 Hypocalcemia; D64.9 Anemia, unspecified; F31.9 Bipolar disorder, unspecified; Z79.899 Other long term (current) drug therapy; Z95.0 Presence of cardiac pacemaker; Z90.49 Acquired absence of other specified parts of digestive tract; Z98.51 Tubal ligation status; I25.2 Old myocardial infarction; Z86.74 Personal history of sudden cardiac arrest; I95.9 Hypotension, unspecified
CPT/HCPCS: 36415; 70450; 71045; 80048; 80053; 81001; 83690; 83735; 83880; 85025; 93005; 93306; 96365; 96375; 97163; G0378; J2405